=== PATIENT | female | born 1990 | race Caucasian/White ===

== ENCOUNTER 2018-02-04 21:04 | Emergency (ER) | payer SELFPAY, BC ==
[2018-02-04 21:34] LABS: KETONE, URINE AUTO RFX NEGATIVE (NEGATIVE); LEUKOCYTE ESTERASE UR AUTO RFX NEGATIVE (NEGATIVE); NITRITE, URINE AUTO RFX NEGATIVE (NEGATIVE); RBC, URINE AUTO RFX 4 /HPF (0-3); SPECIFIC GRAVITY UR AUTO RFX 1.004 (1.002-1.035); SQUAM EPITHELIAL CELL UR AURFX 0 /HPF (0-6); WBC, URINE AUTO RFX 0 /HPF (0-3)
[2018-02-04] MEDS: IBUPROFEN 800 MG TAB PO (22:35)
[2018-02-04] MEDS: CIPROFLOXACIN 500 MG TAB PO (22:36)
[2018-02-04] MEDS: PHENAZOPYRIDINE 100 MG TAB PO (22:36)
== END 2018-02-04 23:41 | disposition home or self-care (01) ==
LOC: M ED 21:04
DX: N30.90 Cystitis, unspecified without hematuria (principal)
CPT/HCPCS: 76856

== ENCOUNTER → 2018-05-02 | Outpatient (CLI) | payer OTHER ==
[2018-05-02 13:26] LABS: HEMATOCRIT 42.5 % (36.0-47.0); HEMOGLOBIN 13.7 g/dl (12.0-15.5); MEAN CORPUSCULAR HEMOGLOBIN 28.3 pg (27.0-33.0); MEAN CORPUSCULAR HGB CONC 32.2 g/dl (32.0-36.5); MEAN CORPUSCULAR VOLUME 87.8 fl (80.0-96.0); PLATELET COUNT, AUTOMATED 234 10^3/uL (150-450); RED BLOOD COUNT 4.84 10^6/uL (4.00-5.40); RED CELL DISTRIBUTION WIDTH 13.2 % (11.5-14.5); WHITE BLOOD COUNT 5.3 10^3/uL (4.0-10.0)
[2018-05-03 00:08] LABS: ALBUMIN 3.8 GM/DL (3.2-5.2); ALBUMIN/GLOBULIN RATIO 1.15 (1.00-1.93); ALKALINE PHOSPHATASE 79 U/L (45-117); ALT/SGPT 33 U/L (12-78); AMYLASE 51 U/L (25-115); BILIRUBIN,DIRECT < 0.1 MG/DL (0.0-0.2); BILIRUBIN,TOTAL 0.3 MG/DL (0.2-1.0); LIPASE 74 U/L (73-393); TOTAL PROTEIN 7.1 GM/DL (6.4-8.2)
[2018-05-04 08:38] LABS: AST/SGOT 17 U/L (7-37)
== END ==
LOC: M SMT 11:58
DX: R10.11 Right upper quadrant pain (principal)
CPT/HCPCS: 82150

== ENCOUNTER → 2018-05-12 | Outpatient (CLI) | payer OTHER | LOC: M RAD 08:11 | DX: R10.2 Pelvic and perineal pain (principal); R10.11 Right upper quadrant pain; K76.0 Fatty (change of) liver, not elsewhere classified | CPT/HCPCS: 76705 ==

== ENCOUNTER 2018-08-15 21:14 | Emergency (ER) | payer OTHER ==
[~2018-08-15] VITALS: Ht 167.6 cm; Wt 118.2 kg
[~2018-08-15 21:14] MED LIST: CIPR-249 PO; PYRI1TAB5 PO
[2018-08-15] MEDS ORDERED: ONDA4TAB5 (21:55)
[2018-08-15] MEDS ORDERED: AMOX500C (21:55)
[2018-08-15 22:56] LABS: BASO % 0.3 % (0.0-1.0); EOS # 0.1 10^3/uL (0.0-0.50); EOS % 0.4 % (0.0-3.0); HEMATOCRIT 42.7 % (36.0-47.0); HEMOGLOBIN 14.3 g/dl (12.0-15.5); LYMPH % 8.4 % (24.0-44.0); MEAN CORPUSCULAR HEMOGLOBIN 28.4 pg (27.0-33.0); MEAN CORPUSCULAR HGB CONC 33.5 g/dl (32.0-36.5); MEAN CORPUSCULAR VOLUME 84.9 fl (80.0-96.0); MONO # 0.5 10^3/uL (0.0-0.8); MONO % 4.6 % (0.0-5.0); NEUTROPHILS # 10.2 10^3/uL (1.8-7.7); PLATELET COUNT, AUTOMATED 244 10^3/uL (150-450); RED BLOOD COUNT 5.03 10^6/uL (4.00-5.40); WHITE BLOOD COUNT 11.8 10^3/uL (4.0-10.0)
[2018-08-15 22:58] LABS: URINE PREG TEST NEGATIVE (NEGATIVE)
[2018-08-15 23:19] LABS: ALT/SGPT 39 U/L (12-78); BILIRUBIN,DIRECT 0.1 MG/DL (0.0-0.2); BILIRUBIN,TOTAL 0.5 MG/DL (0.2-1.0); BLOOD UREA NITROGEN 8 MG/DL (7-18); CALCIUM LEVEL 8.9 MG/DL (8.5-10.1); CARBON DIOXIDE LEVEL 27 MEQ/L (21-32); CHLORIDE LEVEL 104 MEQ/L (98-107); CREATININE FOR GFR 0.79 MG/DL (0.55-1.30); GLOMERULAR FILTRATION RATE > 60.0 (>60); GLUCOSE, FASTING 109 MG/DL (70-100); LIPASE 86 U/L (73-393); POTASSIUM SERUM 3.9 MEQ/L (3.5-5.1); SODIUM LEVEL 137 MEQ/L (136-145); TOTAL PROTEIN 7.4 GM/DL (6.4-8.2)
[2018-08-16] MEDS ORDERED: ISOVUE-370 76% 100ML VIAL (Q9967) As Ordered ONE (00:26)
[2018-08-16] MEDS ORDERED: ONDANSETRON 4MG/2ML VIAL (J2405) IV ONE (00:30)
[2018-08-16] MEDS ORDERED: DICYCLOMINE 10 MG CAP PO ONE (00:30)
[2018-08-16 01:13] LABS: INFLUENZA A AMPLIFICATION NEGATIVE (NEGATIVE); INFLUENZA B AMPLIFICATION NEGATIVE (NEGATIVE)
[2018-08-16] MEDS ORDERED: KETOROLAC 30 MG/ML VIAL (J1885) IV ONE (01:30)
--- NOTE | 2018-08-16 01:43 | REPVR ---
EXAM: CT Abdomen and Pelvis With Contrast EXAM DATE/TIME: 08/16/2018 12:19 AM CLINICAL HISTORY: 28 years old, female; Pain; Abdominal pain; Generalized; Additional info: Very tender abd, rlq > rest, nvd TECHNIQUE: Axial computed tomography images of the abdomen and pelvis with intravenous contrast. All CT scans at this facility use at least one of these dose optimization techniques: automated exposure control; mA and/or kV adjustment per patient size (includes targeted exams where dose is matched to clinical indication); or iterative reconstruction. Coronal and sagittal reformatted images were created and reviewed. CONTRAST: 100 ml of iso administered intravenously. COMPARISON: US PELVIC NON-OB COMPLETE 05/12/2018 10:58 AM FINDINGS: Lower thorax: Unremarkable. ABDOMEN: Liver: Unremarkable. Gallbladder and bile ducts: No radiodense gallstones. No biliary ductal dilatation. Pancreas: Unremarkable. Spleen: Unremarkable. Adrenals: Unremarkable. Kidneys and ureters: No mass. No radiodense calculi. No hydronephrosis. Stomach and bowel: Mild to moderate colonic wall thickening with associated mural and pericolonic edema, extending from the mid transverse colon to the distal descending colon. No obstruction. No pneumatosis. Appendix: Normal. PELVIS: Bladder: Unremarkable. Reproductive: Probable involuting left ovarian corpus luteal cyst versus dominant follicle. ABDOMEN and PELVIS: Intraperitoneal space: Trace nonspecific free pelvic fluid, likely physiologic and/or reactive. No organized fluid collection. No free air. Bones/joints: No acute osseous abnormality. Soft tissues: Unremarkable. Vasculature: Unremarkable. No aneurysm. Lymph nodes: No pathologically enlarged lymph nodes. IMPRESSION: 1. Nonspecific left-sided colitis, as described above. No abscess, obstruction or free air. Follow-up to resolution is recommended. 2. Additional findings, as above. Electronically signed by: Lester Araya On 08/16/2018 01:43:08 AM
[2018-08-16] MEDS ORDERED: CIPR-249 PO (02:04)
[2018-08-16] MEDS ORDERED: ZOFR4TAB16 PO (02:05)
[2018-08-16] MEDS ORDERED: CIPROFLOXACIN 500 MG TAB PO ONE (02:15)
[2018-08-16 02:24] VITALS: BP 137/79
--- NOTE | 2018-08-16 14:35 | ED PDOC ---
Post-Departure Follow-Up pema gomez faxed formal report of ct abd/pfor fu Mac Bhardwaj MD Aug 16, 2018 14:35
== END 2018-08-16 02:26 | disposition home or self-care (01) ==
LOC: M ED 21:14
DX: R10.84 Generalized abdominal pain (principal)
CPT/HCPCS: 74177; 80048; 80076; 81001; 83690; 84703; 85025; 87502; 96374; 96375; 99284; J1885; J2405; Q9967